=== PATIENT | female | born 1935 | race Caucasian/White ===

== ENCOUNTER → 2021-05-01 | Outpatient (CLI) | payer MEDICARE ==
[~2021-05-01] MED LIST: DENOSUMAB 60 MG/ML 1 ML SYRINGE SQ ONE
[2021-05-01 10:49] VITALS: BP 159/87; PULSE 98; RESP 16; TEMP 97.7
== END ==
LOC: PROCWHC3 10:35
PROVIDERS: ATTEND Family Medicine
DX: M81.0 Age-related osteoporosis without current pathological fracture (principal); Z88.0 Allergy status to penicillin
CPT/HCPCS: 96372; J0897

== ENCOUNTER → 2021-05-20 | Outpatient (CLI) | payer MEDICARE ==
--- NOTE | 2021-05-28 14:07 | MM ---
Reason for exam: screening (asymptomatic). Last mammogram was performed 1 year and 1 month ago. History: Patient is postmenopausal. Physical Findings: A clinical breast exam by your physician is recommended on an annual basis and results should be correlated with mammographic findings. MG 3D Screening Mammo W/Cad Bilateral CC and MLO view(s) were taken. Prior study comparison: April 29, 2020, mammogram, performed at [place]. February 23, 2019, mammogram, performed at [place]. The breast tissue is heterogeneously dense. This may lower the sensitivity of mammography. There is no discrete abnormality. No significant changes when compared with prior studies. ASSESSMENT: Negative, BI-RAD 1 RECOMMENDATION: Routine screening mammogram of both breasts in 1 year.
== END | disposition home or self-care (01) ==
LOC: RADMAMWWP 14:25
PROVIDERS: ATTEND Family Medicine
DX: Z12.31 Encounter for screening mammogram for malignant neoplasm of breast (principal); Z78.0 Asymptomatic menopausal state
CPT/HCPCS: 77063; 77067